=== PATIENT | male | born 1990 | race Caucasian/White ===

== ENCOUNTER 2020-08-29 09:04 | Emergency (ER) | payer OTHER ==
[~2020-08-29 09:04] MED LIST: DELSYM30 MG/5 ML PO; FLONASE 0.05% N16 GM; LODINE CAP 300300 MG PO; NAPROSYN500 MG PO; NORFLEX 100 MG100 MG PO; TAMIFLU75 MG PO; VIBRAMYCIN 100100 MG PO
== END 2020-08-29 09:29 | disposition home or self-care (01) ==
LOC: ER1 09:04
DX: B35.1 Tinea unguium (principal)
CPT/HCPCS: 99283

== ENCOUNTER 2022-02-09 15:27 | Emergency (ER) | payer OTHER ==
[2022-02-09 16:08] LABS: HEMOGLOBIN 15.1 gm/dl (14.0-17.5); RED BLOOD COUNT 4.94 M/UL (4.20-5.50); WHITE BLOOD COUNT 8.5 K/UL (4.5-11.0)
[2022-02-09 16:34] LABS: BUN/CREATININE RATIO 13 (0-10)
[2022-02-09] MEDS ORDERED: IBUPROFEN800 MG PO (19:27)
[2022-02-09] MEDS ORDERED: PROTONIX 40 MG40 M1 PO (19:27)
== END 2022-02-09 19:00 | disposition home or self-care (01) ==
LOC: ER1 15:27
DX: R07.89 Other chest pain (principal)
CPT/HCPCS: 36415; 71045; 80053; 82550; 82553; 83605; 84484; 85025; 93005; 96374; 96375; 99285; C9113; J1885